=== PATIENT | male | born 1965 ===

== ENCOUNTER 2018-06-06 08:58 | Emergency (ER) | payer OTHER ==
[~2018-06-06] VITALS: Ht 177.8 cm; Wt 73.9 kg
[2018-06-06] MEDS ORDERED: CLONAZEPAM0.5 MG PO (09:41)
[2018-06-06] MEDS ORDERED: KETO10TA2 PO (15:55)
== END 2018-06-06 16:10 ==
LOC: ER 08:58
DX: M54.89 Other dorsalgia (principal); K80.80 Other cholelithiasis without obstruction